=== PATIENT | female | born 1970 | race African-American/Black ===

== ENCOUNTER 2024-02-01 13:35 | Emergency (ER) | payer OTHER ==
[~2024-02-01] VITALS: Ht 152.4 cm; Wt 73.0 kg
[2024-02-01 13:38] VITALS: BP 129/66; PULSE 101; RESP 16; TEMP 98; O2SAT 99
== END 2024-02-01 13:58 | disposition left against medical advice (07) ==
LOC: ER 13:55
DX: R42 Dizziness and giddiness (principal); Z53.21 Procedure and treatment not carried out due to patient leaving prior to being seen by health care provider

== ENCOUNTER 2024-07-12 22:08 | Inpatient (IN) | payer OTHER ==
[~2024-07-12] VITALS: Ht 157.5 cm; Wt 56.9 kg
[2024-07-12 22:09] VITALS: O2SAT 99
[2024-07-12] MEDS ORDERED: LIDOCAINE HCL/EPINEPHRINE 1%-EPI 1:100,000 20ML VIAL INFIL ONE (22:30)
[2024-07-12] MEDS ORDERED: BACITRACIN ZINC OINT UDPKT TOP ONE (22:30)
[2024-07-12 22:56] LABS: BASOPHILS % 0.7 % (0.0-2.0); EOSINOPHILS % 0.5 % (0.0-5.0); HEMATOCRIT. 33.1 % (36.0-48.0); HEMOGLOBIN. 10.9 g/dL (12.0-16.0); MEAN CORPUSCULAR HEMOGLOBIN 30.1 pg (28.0-32.0); MEAN CORPUSCULAR VOLUME 91.2 fL (81.0-99.0); MEAN PLATELET VOLUME 8.5 fl (7.4-10.4); MONOCYTES % 12.4 % (2.0-8.0); NEUTROPHILS % 70.4 % (40.0-76.0); PLATELET 98 x1000/uL (130-400); RED BLOOD CELL COUNT 3.63 mill/uL (4.2-5.4); RED CELL DISTRIBUTION WIDTH 13.8 % (11.6-14.6); WHITE BLOOD COUNT 2.2 x1000/uL (4.5-11.0)
[2024-07-12] MEDS: TETANUS, DIPHTHERIA, PERTUSSIS VAC/PF 0.5ML (>10YR OLD) IM ONE (23:00)
[2024-07-12 23:01] LABS: CHLORIDE 81 mEq/L (98-107); SODIUM 124 mEq/L (136-145)
[2024-07-12 23:02] LABS: CALCIUM 9.8 mg/dL (8.7-10.4); CARBON DIOXIDE 26 mEq/L (21-32)
[2024-07-12 23:07] LABS: CREATININE 0.9 mg/dL (0.6-1.0); GLUCOSE 231 mg/dL (70-105); UREA NITROGEN BLOOD 9 mg/dL (9-23)
[2024-07-12 23:08] LABS: TROPONIN I HIGH SENSITIVITY < 4 ng/L (3.0-34)
[2024-07-12 23:10] LABS: POTASSIUM 2.8 mEq/L (3.5-5.1)
[2024-07-13] MEDS: SODIUM CHLORIDE 0.9% 1,000 ML IV ONE (00:44)
[2024-07-13] MEDS: MAGNESIUM 2 G PREMIX 50 ML IV ONE (00:47)
[2024-07-13] MEDS: POTASSIUM CHLORIDE 20MEQ TABLET SR PO ONE (00:48)
[2024-07-13] MEDS: KCL 10MEQ/50ML PREMIX 100 ML IV SCH (01:29)
[2024-07-13 02:08] LABS: TROPONIN I HIGH SENSITIVITY < 4 ng/L (3.0-34)
[2024-07-13 04:08] VITALS: BP 134/79; PULSE 83; RESP 17; TEMP 36.6
[2024-07-13] MEDS ORDERED: CLONIDINE 0.1MG TABLET PO PRN (05:00)
[2024-07-13] MEDS ORDERED: DOCUSATE SODIUM 100MG CAPSULE PO PRN (05:00)
[2024-07-13] MEDS ORDERED: GUAIFENESIN 200MG/10ML SUGAR FREE UDC PO PRN (05:00)
[2024-07-13] MEDS ORDERED: ACETAMINOPHEN 325MG TABLET PO PRN ×2 (05:00)
[2024-07-13] MEDS ORDERED: ONDANSETRON HCL 4MG/2ML INJ IV PRN (05:00)
[2024-07-13] MEDS ORDERED: MAGNESIUM/ALUMINUM HYDROXIDE/SIMETHICONE 30ML UDC PO PRN (05:00)
[2024-07-13] MEDS ORDERED: IPRATROPIUM/ALBUTEROL 0.5-3(2.5)MG/3ML NEB HHN PRN (05:00)
[2024-07-13] MEDS ORDERED: IBUPROFEN 600MG TABLET PO PRN (05:15)
[2024-07-13] MEDS ORDERED: DEXTROSE 50% WATER 50ML SYRINGE IV PRN (05:15)
[2024-07-13] MEDS: PANTOPRAZOLE 40MG DR TABLET PO SCH (06:11)
[2024-07-13] MEDS: GABAPENTIN 100MG CAPSULE PO SCH (06:11)
[2024-07-13] MEDS: SODIUM CHLORIDE 0.9% 1,000 ML IV SCH (06:11)
[2024-07-13] MEDS: BLOOD SUGAR DIAGNOSTIC STRIP TEST SCH (06:11)
[2024-07-13] MEDS: INSULIN LISPRO 100 UNITS/ML SUBCUT SCH (06:11)
[2024-07-13 06:42] LABS: CLARITY URINE CLEAR (CLEAR); COLOR URINE YELLOW (YELLOW); GLUCOSE URINE NEGATIVE (NEGATIVE); KETONES URINE NEGATIVE (NEGATIVE); LEUKOCYTE ESTERASE URINE NEGATIVE (NEGATIVE); NITRITE URINE NEGATIVE (NEGATIVE); OCCULT BLOOD URINE NEGATIVE (NEGATIVE); PROTEIN URINE NEGATIVE (NEGATIVE); SPECIFIC GRAVITY URINE 1.005 (1.005-1.030); UROBILINOGEN URINE 0.2 E.U./dL (0.2-1.0)
[2024-07-13 06:54] LABS: *AMPHETAMINES SCREEN URINE NEGATIVE (NEGATIVE)
[2024-07-13 06:55] LABS: *BARBITURATES SCREEN URINE NEGATIVE (NEGATIVE); *BENZODIAZEPINES SCREEN URINE NEGATIVE (NEGATIVE); *COCAINE SCREEN URINE NEGATIVE (NEGATIVE); CANNABINOID URINE SCREEN NEGATIVE (NEGATIVE); ECSTASY MDMA SCREEN URINE NEGATIVE (NEGATIVE); METHADONE URINE SCREEN NEGATIVE (NEGATIVE); OPIATES URINE SCREEN NEGATIVE (NEGATIVE); PHENCYCLIDINE URINE SCREEN NEGATIVE (NEGATIVE)
[2024-07-13 08:00] VITALS: BP 141/76; PULSE 86; RESP 18; TEMP 36.8; O2SAT 97
[2024-07-13] MEDS: DULOXETINE HCL 30MG DR CAPSULE PO SCH (09:11)
[2024-07-13 11:37] LABS: BASOPHILS % 0.4 % (0.0-2.0); EOSINOPHILS % 0.2 % (0.0-5.0); HEMATOCRIT. 30.5 % (36.0-48.0); HEMOGLOBIN. 10.1 g/dL (12.0-16.0); LYMPHOCYTES % 7.9 % (20.0-50.0); MEAN CORPUSCULAR HEMOGLOBIN 30.1 pg (28.0-32.0); MEAN CORPUSCULAR HGB CONC 33.2 g/dL (31.0-37.0); MEAN CORPUSCULAR VOLUME 90.7 fL (81.0-99.0); MONOCYTES % 12.3 % (2.0-8.0); NEUTROPHILS % 79.2 % (40.0-76.0); PLATELET 92 x1000/uL (130-400); RED BLOOD CELL COUNT 3.36 mill/uL (4.2-5.4); RED CELL DISTRIBUTION WIDTH 13.8 % (11.6-14.6); WHITE BLOOD COUNT 3.7 x1000/uL (4.5-11.0)
[2024-07-13 11:52] LABS: CHLORIDE 94 mEq/L (98-107); POTASSIUM 3.1 mEq/L (3.5-5.1); SODIUM 129 mEq/L (136-145)
[2024-07-13 11:53] LABS: CARBON DIOXIDE 26 mEq/L (21-32)
[2024-07-13 11:58] LABS: CREATININE 0.7 mg/dL (0.6-1.0); GLUCOSE 169 mg/dL (70-105); TRIGLYCERIDE 64 mg/dL (0-150); UREA NITROGEN BLOOD 6 mg/dL (9-23)
[2024-07-13 11:59] LABS: LDL CHOLESTEROL 57 mg/dL (5-100); PHOSPHORUS 1.6 mg/dL (2.5-4.9); PROTEIN TOTAL 7.2 g/dL (6.0-8.3)
[2024-07-13 12:00] VITALS: BP 147/85; PULSE 81; RESP 18; TEMP 36.7; O2SAT 98
[2024-07-13 12:00] LABS: ALANINE AMINOTRANSFERASE 175 IU/L (10-49); ALBUMIN 3.9 g/dL (3.2-4.8); ASPARTATE AMINOTRANSFERASE 509 IU/L (<34); BILIRUBIN DIRECT 0.5 mg/dL (<=3.0); CHOLESTEROL 230 mg/dL (<200); HDL CHOLESTEROL 131 mg/dL (>65); LACTATE DEHYDROGENASE 394 IU/L (120-246)
[2024-07-13 12:01] LABS: BILIRUBIN TOTAL 1.7 mg/dL (0.1-1.0); IRON 35 ug/dL (50-170); PROTEIN TOTAL 7.3 g/dL (6.0-8.3)
[2024-07-13 12:02] LABS: T4 FREE 1.47 ng/dL (0.89-1.76)
[2024-07-13 12:04] LABS: TOTAL IRON BINDING CAPACITY 198 ug/dl (250-425)
[2024-07-13 12:27] LABS: FOLIC ACID (FOLATE) SERUM 13.93 ng/mL (>5.38)
[2024-07-13 12:28] LABS: VITAMIN B12 SERUM 1826 pg/mL (211-911)
[2024-07-13 12:30] LABS: FERRITIN > 1650 ng/mL (10-291)
[2024-07-13 12:40] LABS: HEPATITIS B SURFACE ANTIGEN NEGATIVE (Negative)
[2024-07-13 13:01] LABS: HEPATITIS A AB IGM NEGATIVE (Negative); HEPATITIS B CORE AB IGM NEGATIVE (Negative)
[2024-07-13 13:02] LABS: HEPATITIS C AB NON REACTIVE (Neg) (Negative)
[2024-07-13 16:00] VITALS: BP 122/70; PULSE 80; RESP 18; TEMP 36.6; O2SAT 98
[2024-07-13] MEDS: POTASSIUM CHLORIDE 20MEQ TABLET SR PO NR (16:54)
[2024-07-13] MEDS: POTASSIUM PHOSPHATE 30 MMOL in SODIUM CHLORIDE 0.9% 490 ML IV NR (16:56)
[2024-07-13 20:00] VITALS: BP 138/99; PULSE 77; RESP 19; TEMP 36.1; O2SAT 98
[2024-07-13 21:33] LABS: BASOPHILS % 0.5 % (0.0-2.0); EOSINOPHILS % 0.6 % (0.0-5.0); HEMATOCRIT. 30.2 % (36.0-48.0); LYMPHOCYTES % 15.7 % (20.0-50.0); MEAN CORPUSCULAR HEMOGLOBIN 30.2 pg (28.0-32.0); MEAN CORPUSCULAR VOLUME 91.7 fL (81.0-99.0); MEAN PLATELET VOLUME 7.9 fl (7.4-10.4); MONOCYTES % 14.6 % (2.0-8.0); NEUTROPHILS % 68.6 % (40.0-76.0); PLATELET 83 x1000/uL (130-400); RED BLOOD CELL COUNT 3.29 mill/uL (4.2-5.4); RED CELL DISTRIBUTION WIDTH 13.8 % (11.6-14.6); WHITE BLOOD COUNT 3.4 x1000/uL (4.5-11.0)
[2024-07-13 21:41] LABS: CHLORIDE 98 mEq/L (98-107); POTASSIUM 3.9 mEq/L (3.5-5.1); SODIUM 132 mEq/L (136-145)
[2024-07-13 21:42] LABS: CALCIUM 8.6 mg/dL (8.7-10.4); CARBON DIOXIDE 24 mEq/L (21-32)
[2024-07-13] MEDS: ATORVASTATIN CALCIUM 40MG TABLET PO SCH (21:44)
[2024-07-13 21:47] LABS: CREATININE 0.7 mg/dL (0.6-1.0); GLUCOSE 135 mg/dL (70-105); UREA NITROGEN BLOOD 6 mg/dL (9-23)
[2024-07-14] VITALS: BP 148/83; PULSE 77; RESP 18; TEMP 37; O2SAT 99
== END 2024-07-14 03:55 | disposition left against medical advice (07) | DRG 391 ==
LOC: ER 22:08 → 5WST 07-13 02:29 → EDBEDREQ 07-13 02:34 → EDBEDREQTM 07-13 02:34
PROVIDERS: ADMIT Internal Medicine; ATTEND Internal Medicine
DX: A08.4 Viral intestinal infection, unspecified (principal); E43 Unspecified severe protein-calorie malnutrition; D61.818 Other pancytopenia; E87.1 Hypo-osmolality and hyponatremia; E86.0 Dehydration; E87.6 Hypokalemia; I10 Essential (primary) hypertension; G89.29 Other chronic pain; Z53.29 Procedure and treatment not carried out because of patient's decision for other reasons; E11.9 Type 2 diabetes mellitus without complications; S09.93XA Unspecified injury of face, initial encounter; Z68.23 Body mass index [BMI] 23.0-23.9, adult; Z79.4 Long term (current) use of insulin; Z79.899 Other long term (current) drug therapy; X58.XXXA Exposure to other specified factors, initial encounter; Y93.89 Activity, other specified; Y92.89 Other specified places as the place of occurrence of the external cause; Y99.8 Other external cause status
CPT/HCPCS: 36415; 71045; 80048; 80061; 80076; 80305; 81003; 82607; 82728; 82746; 82962; 83036; 83540; 83550; 83615; 83735; 83930; 83935; 84100; 84145; 84155; 84295; 84300; 84439; 84443; 84484; 85025; 85044; 86038; 86705; 86709; 87340; 90715; 93005; 99291; A4606; J1815; J2004; J3475; J3480; J3490; J7030; J7040

== ENCOUNTER 2024-11-18 14:54 | Emergency (ER) | payer OTHER ==
[~2024-11-18] VITALS: Ht 157.5 cm; Wt 77.0 kg
[2024-11-18 14:57] VITALS: O2SAT 99
[2024-11-18 15:12] VITALS: BP 109/76; PULSE 109; RESP 18; TEMP 36.9; O2SAT 99
== END 2024-11-18 16:07 | disposition left against medical advice (07) ==
LOC: ER 14:54
DX: R42 Dizziness and giddiness (principal); Z53.21 Procedure and treatment not carried out due to patient leaving prior to being seen by health care provider
CPT/HCPCS: 93005